=== PATIENT | female | born 1975 | race Caucasian/White ===

== ENCOUNTER 2022-08-30 07:50 | Outpatient (CLI) | payer BC, SELFPAY | END 2022-08-30 07:51 | disposition home or self-care (01) | LOC: ANHAUDIO 07:51 | PROVIDERS: PCP Internal Medicine; Visit Provider Otolaryngology | DX: H69.91 Unspecified Eustachian tube disorder, right ear (principal); H90.41 Sensorineural hearing loss, unilateral, right ear, with unrestricted hearing on the contralateral side | CPT/HCPCS: 92557; 92567 ==